=== PATIENT | female | born 1960 | race Caucasian/White ===

== ENCOUNTER 2016-12-27 10:21 | Emergency (ER) | payer BC ==
[2016-12-27] MEDS ORDERED: Sodium Chloride 0.9% 1,000 ML IV SCH (10:45)
--- NOTE | 2016-12-27 11:11 | EDM.PDOC ---
ED HPI GENERAL MEDICAL PROBLEM - General Chief Complaint: Chest Pain Stated Complaint: CHEST PAIN/SHAKING/THREW UP Time Seen by Provider: 12/27/16 10:35 Source of Information: Reports: Patient, Family History Limitations: Reports: No Limitations - History of Present Illness INITIAL COMMENTS - FREE TEXT/NARRATIVE: 56-year-old female woke at 3 AM this morning with substernal and epigastric discomfort and shortness of breath. She had 2 episodes of emesis. The pain is persisting so she came in to have it evaluated. 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 She feels very anxious. She also has a problem with very labile glucose levels. No fevers or chills. Onset: Sudden (Woke up with pain at 3 AM, 8 hours ago) Duration: Hour(s): Location: Reports: Chest, Abdomen Severity: Moderate Associated Symptoms: Reports: Diaphoresis, Malaise, Nausea/Vomiting, Shortness of Breath, Weakness. Denies: Fever/Chills Chest Pain Score (Numeric/FACES): 8 - Related Data Allergies Allergy/AdvReac Type Severity Reaction Status Date / Time latex Allergy Itching Verified 12/27/16 10:30 Penicillins Allergy Hives Verified 12/27/16 10:30 venom-honey bee Allergy Swelling Verified 12/27/16 10:30 [bee venom (honey bee)] codeine AdvReac Irritabilit Verified 12/27/16 10:30 y hydrocodone AdvReac Irritabilit Verified 12/27/16 10:30 y tramadol AdvReac Irritabilit Verified 12/27/16 10:30 y Home Meds: Home Meds Aspirin [Adult Low Dose Aspirin EC] 81 mg PO DAILY 05/05/13 [History] Cyanocobalamin (Vitamin B12) [Vitamin B12] 1,000 mcg PO DAILY 05/05/13 [History] Cyclobenzaprine [Flexeril] 10 mg PO TID PRN 05/05/13 [History] EPINEPHrine [Epipen 2-Doug] 0.3 mg IM PRN 05/05/13 [History] Estrogens, Conjugated [Premarin] 0.9 mg PO DAILY 05/05/13 [History] Gabapentin [Neurontin] 1,200 - 1,600 mg PO BEDTIME 05/05/13 [History] Gabapentin [Neurontin] 1,600 mg PO DAILY 05/05/13 [History] Hydrochlorothiazide 25 mg PO DAILY 05/05/13 [History] Vitamin B Complex 1 each PO DAILY 05/05/13 [History] Calcium Carbonate [Calcium] 500 mg PO BID 09/28/13 [History] Multivitamin [Multi-Vitamin Daily] 1 each PO BID 09/28/13 [History] HYDROmorphone [Dilaudid] 2 - 4 mg PO Q4H PRN #50 tablet 10/06/13 [Rx] Linaclotide [Linzess] 145 mcg PO DAILY #30 capsule 10/06/13 [Rx] Doxycycline [Vibramycin] 1 tab PO BID 12/27/16 [History] Gabapentin [Neurontin] 2 tab PO DAILY 12/27/16 [History] Iron,Carbonyl/Ascorbic Acid [Vitron-C Tablet] 1 tab PO DAILY 12/27/16 [History] Linaclotide [Linzess] 1 cap PO DAILY 12/27/16 [History] Liraglutide [Victoza] 1.8 mg SUBCUT DAILY 12/27/16 [History] Past Medical History HEENT History: Reports: Impaired Vision Cardiovascular History: Reports: Hypertension, Syncope Gastrointestinal History: Reports: Bowel Obstruction, Chronic Constipation [employer] History: Reports: , Spontaneous Musculoskeletal History: Reports: Back Pain, Chronic, Fracture Endocrine/Metabolic History: Reports: Diabetes, Type II Hematologic History: Reports: B12 Deficiency, Iron Deficiency - Past Surgical History HEENT Surgical History: Reports: Oral Surgery GI Surgical History: Reports: Bariatric Procedure, Cholecystectomy, Colonoscopy , EGD Female Surgical History: Reports: Hysterectomy, Salpingo-Oophorectomy Musculoskeletal Surgical History: Reports: Arthroscopic Knee, Knee Replacement Social & Family History - Tobacco Use Smoking Status *Q: Light Tobacco Smoker Years of Tobacco use: 20 Packs/Tins Daily: 0 Second Hand Smoke Exposure: No - Alcohol Use Days Per Week of Alcohol Use: 0 Number of Drinks Per Day: 3 Total Drinks Per Week: 0 - Recreational Drug Use Recreational Drug Use: No ED ROS GENERAL - Review of Systems Review Of Systems: See Below Constitutional: Reports: Chills, Malaise, Diaphoresis. Denies: Fever HEENT: Reports: No Symptoms Respiratory: Reports: Shortness of Breath Cardiovascular: Reports: Chest Pain GI/Abdominal: Reports: Abdominal Pain, Nausea, Vomiting : Reports: No Symptoms Musculoskeletal: Reports: Neck Pain, Back Pain (Chronic back pain) Skin: Reports: Diaphoresis (Resolved) Neurological: Reports: Headache Psychiatric: Reports: Anxiety ED EXAM, GENERAL - Physical Exam Exam: See Below Exam Limited By: No Limitations General Appearance: Alert, No Apparent Distress, Anxious Eye Exam: Bilateral Eye: Normal Inspection (Normal hydration, no jaundice) Respiratory/Chest: No Respiratory Distress, Lungs Clear Cardiovascular: Regular Rate, Rhythm, Systolic Murmur (Very faint systolic murmur is present) GI/Abdominal: Normal Bowel Sounds, Soft, Tender (She does react with some tenderness to palpation across the upper abdomen but no focal tenderness or guarding) Neurological: Alert, Oriented Psychiatric: Anxious Skin Exam: Warm, Dry EKG INTERPRETATION Rhythm: NSR Course - Vital Signs Last Recorded V/S: Last Vital Signs Temp 96.7 F 12/27/16 10:27 Pulse 82 12/27/16 12:12 Resp 16 12/27/16 12:12 BP 129/69 12/27/16 12:12 Pulse Ox 96 12/27/16 12:12 - Orders/Labs/Meds Labs: Laboratory Tests 12/27/16 12/27/16 12/27/16 Range/Units 10:56 10:56 10:56 WBC 12.0 H (4.5-11.0) K/uL RBC 4.18 (3.30-5.50) M/uL Hgb 12.5 (12.0-15.0) g/dL Hct 36.1 (36.0-48.0) % MCV 86 (80-98) fL MCH 30 (27-31) pg MCHC 35 (32-36) % Plt Count 336 (150-400) K/uL Neut % (Auto) 80 H (36-66) % Lymph % (Auto) 14 L (24-44) % D[place]y % (Auto) 5 (2-6) % Eos % (Auto) 0 L (2-4) % Baso % (Auto) 0 (0-1) % Sodium 128 L (140-148) mmol/L Potassium 4.0 (3.6-5.2) mmol/L Chloride 93 L (100-108) mmol/L Carbon Dioxide 27 (21-32) mmol/L Anion Gap 12.0 (5.0-14.0) mmol/L BUN 7 (7-18) mg/dL Creatinine 0.7 (0.6-1.0) mg/dL Est Cr Clr Drug Dosing 88.30 mL/min Estimated GFR (MDRD) > 60 (>60) Glucose 93 (74-106) mg/dL Calcium 8.5 (8.5-10.1) mg/dL Total Bilirubin 0.6 (0.2-1.0) mg/dL AST 19 (15-37) U/L ALT 20 (12-78) U/L Alkaline Phosphatase 83 (46-116) U/L Troponin I < 0.017 (0.000-0.056) ng/mL Total Protein 7.3 (6.4-8.2) g/dL Albumin 3.4 (3.4-5.0) g/dL Globulin 3.9 H (2.3-3.5) g/dL Albumin/Globulin Ratio 0.9 L (1.2-2.2) Amylase 68 (25-115) U/L Lipase 337 (73-393) U/L Meds: Medications Discontinued Medications Generic Name Dose Route Start Last Admin Trade Name Freq PRN Reason Stop Dose Admin Sodium Chloride 1,000 mls @ 1,000 mls/hr 12/27/16 10:45 12/27/16 10:53 Normal Saline IV 1,000 mls/hr ASDIRECTED SHAQUILLE Administration Ketorolac Tromethamine 30 mg 12/27/16 11:41 12/27/16 11:47 Toradol IVPUSH 12/27/16 11:42 30 mg ONETIME ONE Administration Ondansetron HCl 4 mg 12/27/16 11:52 12/27/16 11:56 Zofran Odt PO 12/27/16 11:53 4 mg ONETIME ONE Administration - Re-Assessments/Exams Free Text/Narrative Re-Assessment/Exam: 12/27/16 11:11 EKG was completely normal. Patient felt she needed fluids, 1 L of normal saline bolus was offered. CBC, CMP, amylase, lipase and troponin were obtained. 12/27/16 11:41 Sodium returned 128 which is somewhat unusual, I reviewed her previous levels and they usually run 138-141. All other labs are reassuring, troponin was 0, amylase and lipase were negative and hemoglobin was normal. Patient calm down after fluids, continued to complain of a headache so she was given 30 mg of Toradol IV. I have no reason for hospitalization at this time. 12/27/16 11:54 Patient was given 4 mg of sublingual Zofran for nausea, discharged with an additional 5 doses to take up to 3 times a day over the next several days and can return in 2-3 days if not improving satisfactorily. Departure - Departure Time of Disposition: 12:26 Disposition: Home, Self-Care 01 Condition: Good Clinical Impression: Chest pain, atypical Abdominal pain Qualifiers: Abdominal location: upper abdomen, unspecified Qualified Code(s): R10.10 - Upper abdominal pain, unspecified Nausea & vomiting Qualifiers: Vomiting type: unspecified Vomiting Intractability: non-intractable Qualified Code(s): R11.2 - Nausea with vomiting, unspecified - Discharge Information Instructions: Nonspecific Chest Pain, [id number] Referrals: PCP,None [Primary Care Provider] - Forms: ED Department Discharge Care Plan Goals: Use Zofran under your tongue every 6-8 hours if needed for nausea. Advance diet slowly and recheck in 2-3 days if not improving satisfactorily. You can return sooner if worsening such as increased pain or inability to swallow food or take fluids without getting sick.
[2016-12-27] MEDS ORDERED: Ketorolac 30 MG/ML SDV IVPUSH ONE (11:41)
[2016-12-27] MEDS ORDERED: Ondansetron 4 MG Tab.DIS PO ONE (11:52)
[2016-12-27 12:13] VITALS: BP 129/69
== END 2016-12-27 12:26 | disposition home or self-care (01) ==
LOC: JP.ED 10:21
DX: R07.2 Precordial pain (principal); R10.13 Epigastric pain; R11.2 Nausea with vomiting, unspecified; I10 Essential (primary) hypertension; E11.9 Type 2 diabetes mellitus without complications; Z90.49 Acquired absence of other specified parts of digestive tract; Z90.710 Acquired absence of both cervix and uterus; F17.210 Nicotine dependence, cigarettes, uncomplicated; Z98.84 Bariatric surgery status; Z96.659 Presence of unspecified artificial knee joint; Z79.82 Long term (current) use of aspirin; Z79.899 Other long term (current) drug therapy; Z88.0 Allergy status to penicillin; Z91.040 Latex allergy status; Z88.5 Allergy status to narcotic agent; Z88.6 Allergy status to analgesic agent; Z91.030 Bee allergy status
CPT/HCPCS: 36415; 80053; 82150; 83690; 84484; 85025; 96361; 96374; 99285; A9270; J1885; J7040; 93005